=== PATIENT | male | born 1970 | race Caucasian/White ===

== ENCOUNTER → 2021-01-11 | Day surgery (SDC) | payer OTHER ==
[~2021-01-11] MED LIST: KEFLEX CAP 500500 MG PO; NITROSTAT0.4 MG SL; PROBIOTIC1 EAC1 PO
== END | disposition home or self-care (01) ==
LOC: OR 07:09
DX: D12.0 Benign neoplasm of cecum (principal); K57.32 Diverticulitis of large intestine without perforation or abscess without bleeding; K57.30 Diverticulosis of large intestine without perforation or abscess without bleeding; K64.1 Second degree hemorrhoids; K63.89 Other specified diseases of intestine; F17.220 Nicotine dependence, chewing tobacco, uncomplicated; E66.9 Obesity, unspecified; G47.30 Sleep apnea, unspecified; Z86.010 Personal history of colon polyps; Z99.89 Dependence on other enabling machines and devices; Z68.28 Body mass index [BMI] 28.0-28.9, adult; Z79.899 Other long term (current) drug therapy
CPT/HCPCS: J2704; J7040; J7050

== ENCOUNTER → 2021-07-01 | Outpatient (CLI) | payer OTHER | LOC: RAD 13:18 | DX: M25.531 Pain in right wrist (principal); M79.641 Pain in right hand; K43.9 Ventral hernia without obstruction or gangrene; M19.041 Primary osteoarthritis, right hand; S62.111A Displaced fracture of triquetrum [cuneiform] bone, right wrist, initial encounter for closed fracture | CPT/HCPCS: 71046; 73110; 73130 ==